=== PATIENT | female | born 1940 | race Caucasian/White ===

== ENCOUNTER 2018-03-12 17:34 | Emergency (ER) | payer BC, OTHER ==
[~2018-03-12] VITALS: Ht 152.4 cm; Wt 89.2 kg
[2018-03-12 18:10] LABS: HEMATOCRIT 37.8 % (36.0-46.0); HEMOGLOBIN 12.9 G/DL (11.9-15.5); MCH 31.9 PG (29.0-34.0); MCHC 34.1 G/DL (30.0-36.0); MCV 93.6 FL (83-99); PLATELET COUNT 160 K/uL (156-360); RBC DIS.WIDTH-CV 12.8 % (11.8-14.6); RBC DIS.WIDTH-SD 43.9 % (39-53); RED BLOOD COUNT 4.04 M/uL (3.80-5.20); WHITE BLOOD COUNT 14.9 K/uL (4.1-10.2)
[2018-03-12 18:33] LABS: ALBUMIN 4.2 G/DL (3.2-4.8); CHLORIDE 106 MEQ/L (99-109); POTASSIUM 3.7 MEQ/L (3.7-5.4); SODIUM 139 MEQ/L (136-147); TOTAL BILIRUBIN 0.5 MG/DL (0.0-1.0)
[2018-03-12 18:39] LABS: ALKALINE PHOSPHATASE 42 IU/L (3-129); ALT (GPT) 20 IU/L (3-49); AST (GOT) 20 IU/L (2-34); CREATININE 0.7 MG/DL (0.6-1.3); GFR ESTIMATE (CALCULATED) > 59 mL/min/; GLUCOSE 109 mg/dL (70-99); LIPASE 14 U/L (1.0-51.0); TOTAL PROTEIN 6.5 G/DL (6.4-8.3); UREA NITROGEN (BUN) 16 mg/dL (9-23)
[2018-03-12] MEDS ORDERED: CIPRO500 MG PO (20:29)
[2018-03-12] MEDS ORDERED: FLAGYL500 MG PO (20:29)
[2018-03-12 21:03] VITALS: BP 149/72
== END 2018-03-12 21:03 | disposition home or self-care (01) ==
LOC: EME 17:34
PROVIDERS: Emergency Medicine
DX: K57.32 Diverticulitis of large intestine without perforation or abscess without bleeding (principal); I10 Essential (primary) hypertension; E78.5 Hyperlipidemia, unspecified; Z95.9 Presence of cardiac and vascular implant and graft, unspecified; Z85.9 Personal history of malignant neoplasm, unspecified
CPT/HCPCS: 74177; 80053; 81003; 83690; 85027; 99281; 99284